=== PATIENT | male | born 1955 | race Caucasian/White ===

== ENCOUNTER 2016-12-25 06:15 | Observation (INO) | payer BC ==
[~2016-12-25] VITALS: Ht 182.9 cm; Wt 202.2 kg
[2016-12-25] VITALS (7 sets, daily range): BP systolic 168–196; BP diastolic 85–110; PULSE 98–105; RESP 20–24; TEMP 99.2–100.1; O2SAT 93–99
[~2016-12-25 06:15] MED LIST: APRI0.372 PO; FISH1000 PO; GLIM2TAB PO; LANTINJ SQ; LEVO.1 PO; LOSA50TA PO; METF500 PO; MULT1TAB PO; TAMS0.4C4 PO; TRAM50TA PO
[2016-12-25] MEDS ORDERED: AMPICILLIN/SULBAC 3 GM/NS 100 ML IV SCH ×4 (06:45→17:00)
[2016-12-25] MEDS ORDERED: LACTATED RINGER'S 1000 ML IV PRN (06:45)
[2016-12-25] MEDS ORDERED: SODIUM CHLORID 0.9% 500 ML IV PRN (06:45)
[2016-12-25] MEDS ORDERED: METOPROLOL TARTRATE 25 MG TAB PO PRN (06:45)
[2016-12-25] MEDS ORDERED: INSULIN HUMAN REGULAR 1,000 UNITS/10 ML VIAL SQ PRN (06:45)
[2016-12-25] MEDS ORDERED: CHLORHEXIDINE GLUCONATE 2 % 1 PACK (2 CLOTHS) TOPICAL PRN (06:45)
[2016-12-25] MEDS ORDERED: LIDOCAINE 0.5%/EPINEPHrine 1:200,000 SOLN 50 ML VIAL ONE (07:25)
[2016-12-25] MEDS ORDERED: OXYMETAZOLINE HCL 0.05% 15 ML NASAL SPRAY ONE (07:25)
[2016-12-25] MEDS ORDERED: AMPICILLIN-SULBACTAM INJ 3 GM VIAL ONE (08:24)
[2016-12-25] MEDS ORDERED: SODIUM CHLORIDE 0.9% INJ 100 ML ONE (08:24)
[2016-12-25] MEDS ORDERED: FAMOTIDINE 20 MG/2 ML VIAL ONE (08:38)
[2016-12-25] MEDS ORDERED: MIDAZOLAM HCL 2 MG/2 ML VIAL ONE (08:38)
[2016-12-25] MEDS ORDERED: DEXAMETHASONE SOD PHOS 4 MG/ML VIAL IV ONE (12:00)
[2016-12-25] MEDS ORDERED: ONDANSETRON HCL 4 MG/2 ML VIAL IV PUSH ONE (12:00)
[2016-12-25] MEDS ORDERED: PROPOFOL 200 MG/20 ML AMP IV ONE (12:00)
[2016-12-25] MEDS ORDERED: ONDANSETRON HCL 4 MG/2 ML VIAL IV PUSH PRN (14:15)
[2016-12-25] MEDS ORDERED: ACETAMINOPHEN/HYDROcodone 325 MG/5 MG TAB PO PRN (14:15)
[2016-12-25] MEDS: LACTATED RINGER'S 1000 ML INJ 1,000 ML IV SCH (15:04)
[2016-12-25] MEDS ORDERED: INSULIN DETEMIR 100 UNITS/ML VIAL SQ ONE (15:15)
--- NOTE | 2016-12-25 15:23 | PD.CONS ---
HPI Service [facility] Hospitalists Consult Requested By Dr. Curran Reason for Consult Monitoring of airway Primary Care Physician Luis A Gonzalez M.D. Diagnoses: (1) Diabetes mellitus (2) Crohn's disease (3) Deviated septum (4) Nasal airway abnormality History of Present Illness Written by Mary Jo Santiago, acting as scribe for Dr. Collins on 12/25/16 at 15: 07. Mr. Chandra is a 61-year-old male patient with a known medical history of DM, sleep apnea, hyperlipidemia, Crohn's disease and deviated septum who underwent a septoplasty and bilateral turbinate resection by Dr. Curran today. Hospitalist has been consulted for medical management. Patient states he has had difficulty breathing at night and multiple problems related to his deviated septum for many years. He has attempted conservative, nonoperative measures for over 2 months time in an attempt to relieve his symptoms including antibiotics and BIPAP, which were all ineffective in relieving symptoms. Patient saw Dr. Curran last week and decided to undergo today's procedure. Patient does admit to a history of type 2 diabetes on home insulin as well as Crohn's disease which is currently stable. Denies any recent illness including fever, chills, headache, lightheadedness, cough, shortness of breath, abdominal pain, nausea, vomiting, diarrhea or dysuria. Review of Systems Constitutional: DENIES: Fatigue, Fever, Chills Respiratory: COMPLAINS OF: Apneas, Snoring, Shortness of breath, DENIES: Cough Cardiovascular: DENIES: Chest pain, Palpitations Gastrointestinal: DENIES: Abdominal pain, Constipation, Diarrhea, Nausea, Vomiting Genitourinary: DENIES: Dysuria Except as stated in HPI: all other systems reviewed are Neg Past Family Social History Allergies: Coded Allergies: Fish Containing Products (Unverified Allergy, Severe, 12/25/16) iodine (Unverified Allergy, Severe, 12/25/16) lisinopril (Verified Allergy, Severe, Hives, 12/25/16) potassium iodide (Unverified Allergy, Severe, 12/25/16) povidone-iodine (Unverified Allergy, Severe, 12/25/16) sodium iodide (Unverified Allergy, Severe, 12/25/16) sodium iodide (Unverified Allergy, Severe, 12/25/16) ciprofloxacin (Unverified Allergy, Unknown, RASH, 12/25/16) doxycycline (Unverified Allergy, Unknown, RASH, 12/25/16) sulfamethoxazole (Unverified Allergy, Unknown, RASH, 12/25/16) trimethoprim (Unverified Allergy, Unknown, RASH, 12/25/16) Past Medical History Type 2 diabetes mellitus Hyperlipidemia Crohn's disease Sleep apnea Deviated septum Past Surgical History Urethroplasty 2010 Urological procedure x 3 Tonsillectomy Reported Medications Active Reported Tramadol (Tramadol HCl) 50 Mg Tab 50 Mg PO Q6H PRN Tamsulosin (Tamsulosin HCl) 0.4 Mg Cap 0.4 Mg PO HS Synthroid (Levothyroxine Sodium) 100 Mcg Tab 100 Mcg PO DAILY Losartan (Losartan Potassium) 50 Mg Tab 50 Mg PO DAILY Lantus Solostar Pen Inj (Insulin Glargine) 300 Unit/3 Ml Pen 1 Units SQ Glimepiride 2 Mg Tab 2 Mg PO DAILY Take with breakfast or first main meal Apriso (Mesalamine) 0.375 Gm Caper 1.5 Gm PO DAILY Active Ordered Medications Current Medications Medications (Trade) Dose Ordered Sig/Wilmar Route Start Time Stop Time Status Last Admin Ampicillin Sodium/ Sulbactam Sodium 3 gm/Sodium Chloride 100 ml @ 200 mls/hr DEBUBBLIZER IV 12/25/16 06:45 12/25/16 18:45 12/25/16 08:56 Lactated Ringer's 1,000 ml @ 30 mls/hr Q24H PRN IV 12/25/16 06:45 12/28/16 06:44 12/25/16 08:16 Sodium Chloride 500 ml @ 30 mls/hr [id number] PRN IV 12/25/16 06:45 12/28/16 06:44 (Lopressor) 25 mg DEBUBBLIZER PRN PO 12/25/16 06:45 12/28/16 06:44 (Chlorhexidine 2% Cloth) 3 pack DEBUBBLIZER PRN TOPICAL 12/25/16 06:45 12/28/16 06:44 (NovoLIN R INJ) See Protocol Table ... DEBUBBLIZER PRN SQ 12/25/16 06:45 12/28/16 06:44 ([place] 5-325 Mg) 1 tab Q4H PRN PO 10/24/17 14:15 (Zofran Inj) 4 mg Q6H PRN IV PUSH 12/25/16 14:15 Lactated Ringer's 1,000 ml @ 80 mls/hr [id number] IV 12/25/16 14:30 Ampicillin Sodium/ Sulbactam Sodium 3 gm/Sodium Chloride 100 ml @ 200 mls/hr Q6H IV 12/25/16 17:00 Family History Maternal medical history significant for DM and Butler's disease. Social History Denies any current tobacco use, quit smoking 6 years ago. Denies any alcohol use. Denies any illicit drug use. Physical Exam Vital Signs Vital Signs Date Time Temp Pulse Resp B/P (MAP) Pulse Ox O2 Delivery O2 Flow Rate FiO2 12/25/16 14:30 98 24 196/88 (124) 99 12/25/16 10:15 93 50 12/25/16 07:40 97.6 88 20 139/66 (90) 92 Physical Exam GENERAL: This is an obese, well-developed patient, lying in bed on supplemental O2, in no apparent distress. SKIN: No rashes, ecchymoses or lesions. Warm and dry. Post surgical nasal dressing in place, small amount of serosanguineous drainage noted, taped in place. HEAD: Atraumatic. Normocephalic. Pupils equal round and reactive. Extraocular motions intact. No scleral icterus. No injection or drainage. Nose without bleeding, purulent drainage or septal hematoma. Airway patent. NECK: Trachea midline. No JVD. Supple. CARDIOVASCULAR: Regular rate and rhythm without murmurs, gallops, or rubs. RESPIRATORY: Clear to auscultation. Breath sounds equal bilaterally. No wheezes , rales, or rhonchi. GASTROINTESTINAL: Abdomen round, obese, non-tender.No guarding. MUSCULOSKELETAL: Trace edema in bilateral lower extremities. No joint tenderness , effusion, or edema noted. No calf tenderness. NEUROLOGICAL: Awake and alert. Cranial nerves II through XII intact. Motor and sensory grossly within normal limits. Five out of 5 muscle strength in all muscle groups. Normal speech. Assessment and Plan Assessment and Plan Mr. Chandra is a 61-year-old male patient with a known medical history of DM, sleep apnea, hyperlipidemia, Crohn's disease and deviated septum who underwent a septoplasty and bilateral turbinate resection by Dr. Curran today. Hospitalist has been consulted for medical management. Status post septoplasty and bilateral turbinate resection by Dr. Curran 12/25/16 - Will monitor airway closely in the ICU overnight. - Control pain, [place] PO available PRN per pain scale. - Continue IV antibiotics as ordered by surgeon. - Ensure hydration, LR @ 80 ml/hr. - Change dressing as needed. - Supplemental O2 to keep sats >92%. - Encourage PO intake, clear liquids as tolerated. Monitor for nausea, Zofran available PRN. Type 2 diabetes mellitus, chronic - ACCU checks ACHS, sliding scale ordered, cover as needed. Will start Levemir 20 units sq BID, 10 units x 1 now. Monitor BS trends. Hypertension, chronic: BP elevated possibly secondary to pain. Will continue home Losartan. Monitor BP trends. Hydralazine IV available PRN per parameters. Pain control as needed. Hypothyroidism, chronic: Continue home Levothyroxine. BPH: Continue home Tamsulosin. DVT prophylaxis: SCDs. Discussed Condition With This note was transcribed by rachid Santiago. I, Dr. Amari Collins personally performed the history, physical exam, and medical decision making; and confirmed the accuracy of the information in the transcribed note. Authenticated by Dr. Amari Collins on 12/25/16 at 16:28. Mary Jo Santiago Dec 25, 2016 15:23 Amari Collins DO Dec 25, 2016 16:28
[2016-12-25] MEDS: hydrALAZINE HCL 20 MG/ML VIAL IV PUSH PRN ×2 (15:49→20:49)
[2016-12-25] MEDS: AMPICILLIN/SULBAC 3 GM/NS 100 ML IV SCH ×4 (16:00→23:37)
--- NOTE | 2016-12-25 16:06 | EKG ---
Date Performed: 12/25/2016 Time Performed: 08:21:20 PTAGE: 61 years EKG: Sinus rhythm LOW QRS VOLTAGE IN PRECORDIAL LEADS BORDERLINE ECG Compared to prior tracing no significant change PREVIOUS TRACING : 10/20/2014 11.32 DOCTOR: Brice Vigil Interpretating Date/Time 12/25/2016 16:04:49
--- NOTE | 2016-12-25 17:41 | RADRPT ---
EXAM DATE/TIME: 12/25/2016 17:08 [facility] COMPARISON: CHEST SINGLE AP, September 03, 2013, 16:10. INDICATIONS : Dyspnea. MEDICAL HISTORY : Hypertension. Hypothyroidism. Hypercholesterolemia. Diabetes, type II. Athritis. SURGICAL HISTORY : Urethoplasty. ENCOUNTER: Initial ACUITY: 2 days PAIN SCORE: 0/10 LOCATION: Bilateral chest FINDINGS: Large body habitus. The lungs are symmetrically aerated. No definite infiltrate seen. There is a o blique opacity in the lower left lung which may represent focal atelectasis. The heart is similar in size to prior examination in 2013. CONCLUSION: Probable subsegmental atelectasis in the left lower lung. No focal areas of consolidation seen. Tony Correa MD on December 25, 2016 at 17:38 Board Certified Radiologist. This report was verified electronically.
[2016-12-25] MEDS: INSULIN ASPART SUPPLEMENTAL SCALE SQ SCH ×2 (18:15→21:00)
[2016-12-25] MEDS: ACETAMINOPHEN/HYDROcodone 325 MG/10 MG TAB PO PRN ×2 (18:31→21:09)
[2016-12-25] MEDS ORDERED: INSULIN DETEMIR 100 UNITS/ML VIAL SQ SCH (21:00)
[2016-12-26] VITALS: BP 178/84; PULSE 105; RESP 20; TEMP 98.9; O2SAT 97
[2016-12-26] MEDS: ACETAMINOPHEN/HYDROcodone 325 MG/10 MG TAB PO PRN ×2 (03:29→08:35)
[2016-12-26] MEDS: LACTATED RINGER'S 1000 ML INJ 1,000 ML IV SCH (03:29)
[2016-12-26 04:00] VITALS: BP 187/94; PULSE 105; RESP 20; TEMP 98.8; O2SAT 95
[2016-12-26 07:56] VITALS: O2SAT 95
[2016-12-26 08:00] VITALS: BP 162/90; PULSE 100; RESP 22; TEMP 98; O2SAT 95
[2016-12-26] MEDS: INSULIN ASPART SUPPLEMENTAL SCALE SQ SCH (08:00)
--- NOTE | 2017-01-14 08:29 | MP ---
cc: AEME CURRAN M.D. DATE OF OPERATION December 25, [address] Amee Curran PREOPERATIVE DIAGNOSES 1. Nasal airway obstruction. 2. Nasal septal deviation. 3. Hypertrophy of inferior turbinates. 4. Obstructive sleep apnea. POSTOPERATIVE DIAGNOSES 1. Nasal airway obstruction. 2. Nasal septal deviation. 3. Hypertrophy of inferior turbinates. 4. Obstructive sleep apnea. OPERATION PERFORMED 1. Open repair nasal septal fracture. 2. Bilateral submucosal resection of inferior turbinates. INDICATIONS Documented in the history and physical. DESCRIPTION OF OPERATION The patient was taken to OR #2 and placed in the supine position. Following induction of general anesthesia and intubation, the nose was packed bilaterally with cotton pledgets saturated in 0.05% oxymetazoline. The nasal septal mucosa and the inferior turbinates were injected with a total of 12 mL of 1% Xylocaine with epinephrine 1:100,000. He was then prepped and draped for surgery. The packing was removed and a hemitransfixion incision was made in the left nasal vestibule and through this incision the mucosa of septum was elevated bilaterally as far as the junction of the bony cartilaginous septum. This was followed by removal of a cumulative area of 2 x 2 cm of very thick, twisted and irregular quadrangular cartilage. This was completed in a piecemeal fashion using a Webb elevator and Renville-Flores forceps and was done preserving 1.5 cm dorsal and caudal cartilaginous struts. The caudal cartilaginous strut was then fully mobilized and underlying bone and soft tissue and a small area of cartilage approximately 3-mm removed from its inferior end allowing it to return to the midline over the maxillary crest. The mucosa of septum was elevated from the bony septum and the bony septum was removed with Renville-Flores forceps and [place] septal forceps. The maxillary crest was removed using a 6-mm Migue chisel. This was done preserving the anterior nasal spine. The incision was then closed with a running suture of 4-0 chromic and the mucosal layers of septum were approximated using a quilting stitch of 4-0 plain gut. The inferior turbinates were addressed next. They were fractured out medially and stab incisions were opened along their inferior surfaces. Through these incisions the submucosal soft tissue was reduced using a curette and preserving the conchal bone. The incision was then cauterized using the suction Bovie at 40 renae and the remnants of the inferior turbinates were relateralized to the lateral nasal wall. The nose was then packed with bilateral 5.5 cm Rapid Rhino packs each pack was inflated with 5 mL of air and the procedure was terminated. The patient was then reversed from anesthesia and taken to Recovery in good condition. There were no complications. Blood loss was 60 mL. MD LESTER Rossi/EARNEST /7:21 AM /8:25 AM
== END 2016-12-26 11:00 | disposition home or self-care (01) ==
LOC: PHSDC 06:15 → HSDI 08:43 → PHICU 14:53
PROVIDERS: ADMIT Otolaryngology; ATTEND Otolaryngology
DX: J34.2 Deviated nasal septum (principal); J34.3 Hypertrophy of nasal turbinates; R09.81 Nasal congestion; G47.33 Obstructive sleep apnea (adult) (pediatric); E11.9 Type 2 diabetes mellitus without complications; K50.90 Crohn's disease, unspecified, without complications; Z79.4 Long term (current) use of insulin; E78.5 Hyperlipidemia, unspecified; I10 Essential (primary) hypertension; E03.9 Hypothyroidism, unspecified; N40.0 Benign prostatic hyperplasia without lower urinary tract symptoms
CPT/HCPCS: 00160; 21336; 30130; 71010; 82948; 93005; 94002; 96361; 96365; 96372; G0378; J0295; J0360; J1100; J1815; J2250; J2405; J7120